=== PATIENT | female | born 1955 | race Caucasian/White ===

== ENCOUNTER 2021-02-20 08:52 | Outpatient (REF) | payer MEDICARE, SELFPAY ==
[2021-02-20 09:43] LABS: COVID-19 Test Negative (Negative)
== END 2021-02-20 08:53 | disposition home or self-care (01) ==
LOC: HO.LAB 08:52
PROVIDERS: PCP Pediatrics; Visit Provider Internal Medicine
DX: Z20.822 Contact with and (suspected) exposure to COVID-19 (principal)
CPT/HCPCS: 36415; 87635; C9803

== ENCOUNTER 2021-05-10 09:35 | Outpatient (REF) | payer MEDICARE, SELFPAY ==
[2021-05-10 10:00] LABS: COVID-19 Test Negative (Negative)
== END 2021-05-10 09:36 | disposition home or self-care (01) ==
LOC: HO.LAB 09:35
PROVIDERS: PCP Pediatrics; Visit Provider Internal Medicine
DX: Z20.822 Contact with and (suspected) exposure to COVID-19 (principal)
CPT/HCPCS: 36415; 87635; C9803

== ENCOUNTER 2024-03-09 08:54 | Day surgery (SDC) | payer MEDICARE, SELFPAY ==
[2024-02-26 10:34] VITALS: BMI 20.5
--- NOTE | 2024-03-05 14:26 | P.CONAN_ITS ---
HPI - Anesthesia Eval Consult details Narrative: 68yo F for Right Cataract Extraction IOL Insertion No previous cataract PMFSH Past Medical History Medical History Cataracts, bilateral Peripheral neuropathy Hx of pneumothorax (~1989) History of blood transfusion History of chemotherapy History of colon cancer History of femur fracture Ileostomy in place Surgical History Surgical History History of back surgery Hx of colonoscopy History of colostomy reversal Hx of colectomy Social History Social History Are you a primary health and social care teacher to a significant other at home: No Do you presently have visiting nurse or other home services: No Patient Tobacco Use Status: Former Tobacco user Tobacco use type: Cigarette Smoked in Last 30 Days: No Use of substances other than those prescribed or required for medical reasons: No Have you been hit, kicked, punched, or otherwise hurt by someone within the past year? If so, by whom?: No Are you DNR?: No Advance Directives: No Advance Directives Information Provided: Yes Advance Directives on File: No Recently lost weight without trying: No Nutrition Risks: No Nutritional Risk Meds Allergies Allergy/AdvReac Type Severity Reaction Status Date / Time droperidol [From Inapsine] Allergy Severe Swelling Verified 03/09/24 09:55 Home Medications ?Medication ?Instructions ?Recorded ?Confirmed ?Last Taken ?Type citalopram 10 mg tablet 10 mg PO DAILY 02/26/24 03/09/24 03/09/24 History gabapentin 300 mg capsule 300 mg PO BEDTIME 02/26/24 02/26/24 Unknown History loperamide 2 mg capsule 2 mg PO DAILY 02/26/24 03/09/24 03/09/24 History Exam Height,Weight and Vital Signs: Height 5 ft 6 in Weight 57.606 kg Assessment and Plan Assessment Anesthesia Assessment: Chart Reviewed
[2024-03-09] MEDS: Tetracaine HCl/PF 0.5% Oph Sol 4 ML DROPS 1 DROP EYE-RIGHT (10:11)
[2024-03-09] MEDS: Cyclopentolate 1 % Ophth Sol 2 ML DRPBTL 1 DROP EYE-RIGHT ×3 (10:12→10:28)
[2024-03-09] MEDS: Tropicamide 1 % Ophth Sol 3 ML BTL 1 DROP EYE-RIGHT ×3 (10:14→10:30)
[2024-03-09] MEDS: Ketorolac Tromethamine 0.5% Op 10 ML DROPS 1 DROP EYE-RIGHT ×3 (10:16→10:32)
[2024-03-09] MEDS: Phenylephrine HCL 2.5% Oph SoL 2 ML BOTTLE 1 DROP EYE-RIGHT ×3 (10:18→10:34)
[2024-03-09 10:22] VITALS: BP 106/64; PULSE 86; RESP 16; TEMP 36.1; O2SAT 99
[2024-03-09] MEDS: Lactated Ringers 1,000 ML 100 ML IVCONT (10:31)
--- NOTE | 2024-03-09 11:55 | P.CONAN_ITS ---
[facility] Past Medical History Medical History Cataracts, bilateral Peripheral neuropathy Hx of pneumothorax (~1989) History of blood transfusion History of chemotherapy History of colon cancer History of femur fracture Ileostomy in place Functional capacity: independent ambulation Patient : No Family History Family history of problems with anesthesia: No Surgical History Surgical History History of back surgery Hx of colonoscopy History of colostomy reversal Hx of colectomy History of Problems with Anesthesia: No Social History Social History Are you a primary dog day care attendant to a significant other at home: No Do you presently have visiting nurse or other home services: No Patient Tobacco Use Status: Former Tobacco user Tobacco use type: Cigarette Smoked in Last 30 Days: No Use of substances other than those prescribed or required for medical reasons: No Have you been hit, kicked, punched, or otherwise hurt by someone within the past year? If so, by whom?: No Are you DNR?: No Advance Directives: No Advance Directives Information Provided: Yes Advance Directives on File: No Nutrition Risks: No Nutritional Risk Meds Allergies Allergy/AdvReac Type Severity Reaction Status Date / Time droperidol [From Inapsine] Allergy Severe Swelling Verified 03/09/24 09:55 Active Medications: Current Medications Lactated Ringer's (Lr) 1,000 mls @ 100 mls/hr IVCONT .Q10H ANTONETTE Last Admin: 03/09/24 10:31 Dose: 100 mls/hr Povidone Iodine (Povidone Iodine 5 % Ophth Soln 30 Ml Bottle) 1 appl EYE-RIGHT PREOP PRN PRN Reason: Pre-Op Surgical Implant Prophy Home Medications ?Medication ?Instructions ?Recorded ?Confirmed ?Last Taken ?Type citalopram 10 mg tablet 10 mg PO DAILY 02/26/24 03/09/24 03/09/24 History gabapentin 300 mg capsule 300 mg PO BEDTIME 02/26/24 02/26/24 Unknown History loperamide 2 mg capsule 2 mg PO DAILY 02/26/24 03/09/24 03/09/24 History Exam Height,Weight and Vital Signs: Height 5 ft 6 in Weight 57.606 kg Last Vital Signs Temp 97.0 F 03/09/24 10:22 Pulse 86 03/09/24 10:22 Resp 16 03/09/24 10:22 BP 106/64 03/09/24 10:22 Pulse Ox 99 03/09/24 10:22 O2 Del Method Room Air 03/09/24 10:22 Airway Mallampati Class: II TM Dist: >3cm Neck ROM: Full Heart: RRR Lungs: CTA Assessment and Plan Assessment Anesthesia Assessment: Anesthesia Plan Discussed and Chart Reviewed Final Anesthetic Review Family History of Problems with Anesthesia: No History of Problems with Anesthesia: No NPO: Yes ASA Class: III Final Preanesthetic Review: Meds/Allgs Chart Reviewed, Consent Obtained/Reviewed and Anes Risks/Benef Reviewed Patient Risk: Intermediate Procedure Risk: Low Anesthetic Plan Anesthetic Plan: MAC: Disposition: Standard PACU
--- NOTE | 2024-03-09 12:16 | MHC.SHP ---
Pre-Procedural Eval Section A - 24 Hr Update-Section A only Date of Service: 03/09/24 The patient is an INPATIENT: No Changes since office visit: No Cold of Flu in the past 2 weeks, No New Medical Problems, No Changes in Medication and No Patient answered all questions The patient has been examined within 24 hours of the surgical procedure. The History & Physical has been completed within 30 days and I have reviewed it.: Yes Section B - Complete if H&P > 30 days Chief Complaint: Age-related nuclear cataract, right eye Allergies: Allergies Allergy/AdvReac Type Severity Reaction Status Date / Time droperidol [From Inapsine] Allergy Severe Swelling Verified 03/09/24 09:55 Plan Diagnosis/Plan: Unchanged I have reviewed the history and physical and performed a pertinent physical examination on my patient. No changes have occurred unless specified. Time Spent With Patient Time: Total time managing care of this patient today ____ minutes.
--- NOTE | 2024-03-09 12:17 | P.PCNO_ITS ---
Ophthalmology Procedure Procedure Date of Service: 03/09/24 Ophthalmology Viscoelastic: Healon Duet Dual Pack Pro Ophthalmology Lenses: IOL Acrysof MP - MA60AC (21) Procedure Notes: PREOPERATIVE DIAGNOSIS: Decreased visual acuity right eye secondary to cataract POSTOPERATIVE DIAGNOSIS: Same PROCEDURE: Right cataract extraction with intraocular lens insertion SURGEON: Gildardo Coppola M.D. ANESTHESIA: Topical/MAC ESTIMATED BLOOD LOSS: None COMPLICATIONS: None After obtaining informed consent, the patient was brought to the operating room suite and placed in the supine position. After adequate sedation per anesthesia, topical drops of Tetracaine were given to the right eye. The eye was then prepped and draped in the usual sterile fashion. The operating room microscope was then positioned over the operative eye and a lid speculum placed. A paracentesis was created. Viscoelastic was then instilled into the anterior chamber. A three plane incision was then created temporally, utilizing a 2.85 mm keratome. Capsulotomy forceps were then utilized to create a circular tear capsulotomy. Hydrodissection and hydrodelineation were carried out until adequate mobilization of the nucleus occurred. Phacoemulsification was then utilized to remove the dense central nucl eus followed by removal of the cortical material utilizing the automated aspiration irrigation unit. Viscoelastic was instilled into the posterior capsular bag followed by placement of a posterior chamber intraocular lens without difficulty. The residual Viscoelastic was then removed utilizing the automated IA machine. The wound was checked and found to be watertight. The patient tolerated the procedure well and the lid speculum was removed. Intracameral injection of Vigamox 0.1 mL followed by a subtenon injection of Kenalog-40 0.2 mL were administered. The patient will be seen in the a.m.
[2024-03-09 12:45] VITALS: BP 108/62; PULSE 65; RESP 16; TEMP 36.6; O2SAT 100
--- NOTE | 2024-03-09 12:52 | HO.POSTANES ---
Post Anesthesia Evaluation Post Anesthesia Evaluation Date of Service: 03/09/24 Vital Signs: Vital Signs Temp Pulse Resp BP Pulse Ox O2 Del Method 03/09/24 10:22 97.0 F 86 16 106/64 99 Room Air Anesthesia: Monitored Mental Status: Awake Pain Control: Satisfactory Nausea/Vomiting: None Hydration: Adequate Anesthesia-Related Issues: No Anes. Related Issues
[2024-03-09 13:00] VITALS: BP 110/52; PULSE 65; RESP 16; TEMP 36.6; O2SAT 100
== END 2024-03-09 13:14 | disposition home or self-care (01) ==
PROVIDERS: PCP Pediatrics; Visit Provider Ophthalmology
PROC: (CPT 66985; principal; 2024-03-09 10:50)
DX: H25.11 Age-related nuclear cataract, right eye (principal); H52.4 Presbyopia; Z83.511 Family history of glaucoma; H18.413 Arcus senilis, bilateral; H11.153 Pinguecula, bilateral; H43.393 Other vitreous opacities, bilateral; K50.90 Crohn's disease, unspecified, without complications; Z90.49 Acquired absence of other specified parts of digestive tract; Z79.899 Other long term (current) drug therapy; Z88.8 Allergy status to other drugs, medicaments and biological substances; Z98.890 Other specified postprocedural states; Z87.891 Personal history of nicotine dependence
CPT/HCPCS: 66984; J2250; J3301; V2630

== ENCOUNTER 2024-03-23 08:32 | Day surgery (SDC) | payer MEDICARE, SELFPAY ==
[2024-02-26 10:39] VITALS: BMI 20.5
--- NOTE | 2024-03-19 14:30 | P.CONAN_ITS ---
Documented by User: Veronique Parikh NP 03/19/24 14:30 HPI - Anesthesia Eval Consult details Narrative: 68yo F for Left Cataract Extraction IOL Insertion Right eye 03/09/24: Midaz 2 PMFSH Past Medical History Medical History Cataracts, bilateral Peripheral neuropathy Hx of pneumothorax (~1989) History of blood transfusion History of chemotherapy History of colon cancer History of femur fracture Ileostomy in place Family History Family history of problems with anesthesia: No Surgical History Surgical History History of back surgery Hx of colonoscopy History of colostomy reversal Hx of colectomy History of Problems with Anesthesia: No Social History Social History Are you a primary palliative care specialist to a significant other at home: No Do you presently have visiting nurse or other home services: No Patient Tobacco Use Status: Former Tobacco user Tobacco use type: Cigarette Smoked in Last 30 Days: No Use of substances other than those prescribed or required for medical reasons: No Have you been hit, kicked, punched, or otherwise hurt by someone within the past year? If so, by whom?: No Are you DNR?: No Advance Directives: No Advance Directives Information Provided: Yes Advance Directives on File: No Recently lost weight without trying: No Nutrition Risks: No Nutritional Risk Meds Allergies Allergy/AdvReac Type Severity Reaction Status Date / Time droperidol [From Inapsine] Allergy Severe Swelling Verified 03/23/24 09:28 Home Medications ?Medication ?Instructions ?Recorded ?Confirmed ?Last Taken ?Type citalopram 10 mg tablet 10 mg PO DAILY 02/26/24 03/23/24 03/23/24 History gabapentin 300 mg capsule 300 mg PO BEDTIME 02/26/24 03/23/24 Unknown History loperamide 2 mg capsule 2 mg PO DAILY 02/26/24 03/23/24 03/09/24 History Exam Height,Weight and Vital Signs: Height 5 ft 6 in Weight 57.606 kg Assessment and Plan Assessment Anesthesia Assessment: Chart Reviewed Final Anesthetic Review Family History of Problems with Anesthesia: No History of Problems with Anesthesia: No Documented by User: Oksana Skelton MD 03/23/24 09:35 PMF Past Medical History Medical History Cataracts, bilateral Peripheral neuropathy Hx of pneumothorax (~1989) History of blood transfusion History of chemotherapy History of colon cancer History of femur fracture Ileostomy in place Surgical History Surgical History History of back surgery Hx of colonoscopy History of colostomy reversal Hx of colectomy Social History Social History Are you a primary palliative care specialist to a significant other at home: No Do you presently have visiting nurse or other home services: No Patient Tobacco Use Status: Former Tobacco user Tobacco use type: Cigarette Smoked in Last 30 Days: No Use of substances other than those prescribed or required for medical reasons: No Have you been hit, kicked, punched, or otherwise hurt by someone within the past year? If so, by whom?: No Are you DNR?: No Advance Directives: No Advance Directives Information Provided: Yes Advance Directives on File: No Recently lost weight without trying: No Nutrition Risks: No Nutritional Risk Meds Allergies Allergy/AdvReac Type Severity Reaction Status Date / Time droperidol [From Inapsine] Allergy Severe Swelling Verified 03/23/24 09:28 Home Medications ?Medication ?Instructions ?Recorded ?Confirmed ?Last Taken ?Type citalopram 10 mg tablet 10 mg PO DAILY 02/26/24 03/23/24 03/23/24 History gabapentin 300 mg capsule 300 mg PO BEDTIME 02/26/24 03/23/24 Unknown History loperamide 2 mg capsule 2 mg PO DAILY 02/26/24 03/23/24 03/09/24 History Exam Airway Mallampati Class: III (globally poor dentition) TM Dist: >3cm Neck ROM: Full Partial: Lower Loose/Missing/Broken Teeth: Yes and Lower Heart: RRR Lungs: CTA Assessment and Plan Assessment Anesthesia Assessment: Anesthesia Plan Discussed Final Anesthetic Review NPO: Yes ASA Class: III Final Preanesthetic Review: Meds/Allgs Chart Reviewed, Consent Obtained/Reviewed and Anes Risks/Benef Reviewed Patient Risk: Intermediate Procedure Risk: Low Anesthetic Plan Anesthetic Plan: MAC: Disposition: Standard PACU
[2024-03-23] MEDS: Phenylephrine HCL 2.5% Oph SoL 2 ML BOTTLE 1 DROP EYE-LEFT ×3 (09:08→09:18)
[2024-03-23] MEDS: Tetracaine HCl/PF 0.5% Oph Sol 4 ML DROPS 1 DROP EYE-LEFT (09:08)
[2024-03-23] MEDS: Cyclopentolate 1 % Ophth Sol 2 ML DRPBTL 1 DROP EYE-LEFT ×3 (09:08→09:18)
[2024-03-23] MEDS: Lactated Ringers 500 ML 50 ML IV (09:08)
[2024-03-23] MEDS: Ketorolac Tromethamine 0.5% Op 10 ML DROPS 1 DROP EYE-LEFT ×3 (09:09→09:18)
[2024-03-23] MEDS: Tropicamide 1 % Ophth Sol 3 ML BTL 1 DROP EYE-LEFT ×3 (09:09→09:18)
[2024-03-23 09:20] VITALS: BP 106/72; PULSE 76; RESP 18; TEMP 36.6; O2SAT 97
--- NOTE | 2024-03-23 10:24 | HO.PNOPHT ---
Ophthalmology Procedure Procedure Date of Service: 03/23/24 Ophthalmology Viscoelastic: Healon Duet Dual Pack Pro Ophthalmology Lenses: IOL Acrysof MP - MA60AC (21) Procedure Notes: PREOPERATIVE DIAGNOSIS: Decreased visual acuity left eye secondary to cataract POSTOPERATIVE DIAGNOSIS: Same PROCEDURE: Left cataract extraction with intraocular lens insertion SURGEON: Gildardo Coppola M.D. ANESTHESIA: Topical/MAC ESTIMATED BLOOD LOSS: None COMPLICATIONS: None After obtaining informed consent, the patient was brought to the operation room suite and placed in the supine position. After adequate sedation per anesthesia, topical drops of Tetracaine were given to the left eye. The eye was then prepped and draped in the usual sterile fashion. The operating room microscope was then positioned over the operative eye and a lid speculum placed. A paracentesis was created. Viscoelastic was then instilled into the anterior chamber. A three plane incision was then created temporally, utilizing a 2.85 mm keratome. Capsulotomy forceps were then utilized to create a circular tear capsulotomy. Hydrodissection and hydrodelineation were carried out until adequate mobilization of the nucleus occurred. Phacoemulsification was then utilized to remove the dense central nucleus followed by removal of the cortical material utilizing the automated aspiration irrigation unit. Viscoat elastic was instilled into the posterior capsular bag followed by placement of a posterior chamber intraocular lens without difficulty. The residual Viscoat elastic was then removed utilizing the automated IA machine. The wound was check and found to be watertight. The patient tolerated the procedure well and the lid speculum was removed. Intracameral injection of Vigamox 0.1 mL followed by a subtenon injection of Kenalog-40 0.2 mL were administered. The patient will be seen in the a.m.
[2024-03-23 10:50] VITALS: BP 119/69; PULSE 73; RESP 18; TEMP 36.4; O2SAT 98
== END 2024-03-23 10:58 | disposition home or self-care (01) ==
PROVIDERS: PCP Pediatrics; Visit Provider Ophthalmology
PROC: (CPT 66985; principal; 2024-03-23 10:30)
DX: H25.12 Age-related nuclear cataract, left eye (principal); H52.4 Presbyopia; Z83.511 Family history of glaucoma; H18.413 Arcus senilis, bilateral; H11.153 Pinguecula, bilateral; H43.393 Other vitreous opacities, bilateral; C85.80 Other specified types of non-Hodgkin lymphoma, unspecified site; Z92.21 Personal history of antineoplastic chemotherapy; K50.90 Crohn's disease, unspecified, without complications; Z87.891 Personal history of nicotine dependence; Z79.899 Other long term (current) drug therapy; Z88.8 Allergy status to other drugs, medicaments and biological substances
CPT/HCPCS: 66984; J2250; J3301; V2630